=== PATIENT | male | born 1945 | race African-American/Black ===

== ENCOUNTER → 2021-01-09 | Outpatient (CLI) | payer OTHER ==
[2021-01-09 11:26] LABS: BASOPHILS % 0.1 % (0.0-2.0); HEMATOCRIT. 46.5 % (42.0-52.0); HEMOGLOBIN. 15.6 g/dL (14.0-18.0); LYMPHOCYTES % 24.5 % (20.0-50.0); MEAN CORPUSCULAR HEMOGLOBIN 28.5 pg (28.0-32.0); MEAN CORPUSCULAR VOLUME 84.9 fL (80.0-94.0); MEAN PLATELET VOLUME 8.5 fl (7.4-10.4); NEUTROPHILS % 67.4 % (40.0-76.0); PLATELET 200 x1000/uL (130-400); RED BLOOD CELL COUNT 5.48 mill/uL (4.7-6.1)
[2021-01-09 11:27] LABS: CLARITY URINE CLEAR (CLEAR); COLOR URINE YELLOW (YELLOW); KETONES URINE NEGATIVE (NEGATIVE); LEUKOCYTE ESTERASE URINE NEGATIVE (NEGATIVE); NITRITE URINE NEGATIVE (NEGATIVE); OCCULT BLOOD URINE NEGATIVE (NEGATIVE); PROTEIN URINE NEGATIVE (NEGATIVE); SPECIFIC GRAVITY URINE 1.011 (1.005-1.030); UROBILINOGEN URINE 0.2 E.U./dL (0.2-1.0)
[2021-01-09 11:34] LABS: CHLORIDE 108 mEq/L (98-107)
[2021-01-09 11:35] LABS: PARTIAL THROMBOPLASTIN TIME 28.6 sec (23.4-31.0); PROTHROMBIN TIME 10.9 sec (9.6-11.0)
== END | disposition home or self-care (01) ==
LOC: RAD 09:00
PROVIDERS: ATTEND Family Medicine
DX: Z01.818 Encounter for other preprocedural examination (principal); I49.3 Ventricular premature depolarization; S83.207A Unspecified tear of unspecified meniscus, current injury, left knee, initial encounter; X58.XXXA Exposure to other specified factors, initial encounter; Y93.89 Activity, other specified; Y92.89 Other specified places as the place of occurrence of the external cause; Y99.8 Other external cause status
CPT/HCPCS: 36415; 71045; 80053; 81003; 85025; 93005

== ENCOUNTER → 2021-02-27 | Outpatient (CLI) | payer OTHER ==
[2021-02-27 12:32] LABS: BASOPHILS % 0.4 % (0.0-2.0); EOSINOPHILS % 0.1 % (0.0-5.0); HEMATOCRIT. 48.6 % (42.0-52.0); HEMOGLOBIN. 16.2 g/dL (14.0-18.0); LYMPHOCYTES % 24.9 % (20.0-50.0); MEAN CORPUSCULAR VOLUME 84.3 fL (80.0-94.0); MEAN PLATELET VOLUME 8.7 fl (7.4-10.4); MONOCYTES % 7.6 % (2.0-8.0); PLATELET 193 x1000/uL (130-400); RED BLOOD CELL COUNT 5.77 mill/uL (4.7-6.1); RED CELL DISTRIBUTION WIDTH 15.1 % (11.6-14.6)
[2021-02-27 12:39] LABS: CHLORIDE 110 mEq/L (98-107)
[2021-02-27 12:42] LABS: CLARITY URINE CLEAR (CLEAR); COLOR URINE YELLOW (YELLOW); KETONES URINE NEGATIVE (NEGATIVE); LEUKOCYTE ESTERASE URINE NEGATIVE (NEGATIVE); NITRITE URINE NEGATIVE (NEGATIVE); OCCULT BLOOD URINE NEGATIVE (NEGATIVE); PROTEIN URINE NEGATIVE (NEGATIVE); SPECIFIC GRAVITY URINE 1.013 (1.005-1.030); UROBILINOGEN URINE 0.2 E.U./dL (0.2-1.0)
[2021-02-27 12:43] LABS: PARTIAL THROMBOPLASTIN TIME 28.5 sec (23.4-31.0); PROTHROMBIN TIME 10.9 sec (9.6-11.0)
== END | disposition home or self-care (01) ==
LOC: LAB 11:45
PROVIDERS: ATTEND Family Medicine
DX: Z01.812 Encounter for preprocedural laboratory examination (principal)
CPT/HCPCS: 36415; 80053; 81003; 85025

== ENCOUNTER 2021-03-02 06:02 | Day surgery (SDC) | payer OTHER ==
[~2021-03-02] VITALS: Ht 170.2 cm; Wt 97.5 kg
[~2021-03-02 06:02] MED LIST: LACTATED RINGERS 1,000 ML IV SCH
[2021-03-02] MEDS ORDERED: LIDOCAINE HCL 1% 10 MG/ML 10ML VIAL ONE (07:32)
[2021-03-02] MEDS ORDERED: DEXAMETHASONE 4MG/ML 1ML VIAL ONE (07:32)
[2021-03-02] MEDS ORDERED: METOCLOPRAMIDE HCL 10MG/2ML VIAL ONE (07:32)
[2021-03-02] MEDS ORDERED: ONDANSETRON HCL 4MG/2ML INJ ONE (07:32)
[2021-03-02] MEDS ORDERED: BACITRACIN 15GM TUBE TOP ONE (07:38)
[2021-03-02] MEDS ORDERED: METHYLENE BLUE 50 MG/10 ML AMP IV ONE (07:38)
[2021-03-02] MEDS ORDERED: BUPIVACAINE HCL/PF 0.25% (2.5MG/ML) 10ML ONE ×2 (07:39→09:37)
[2021-03-02] MEDS ORDERED: POLYMYXIN B SULFATE 500000 UNITS/VIAL ONE (07:40)
[2021-03-02] MEDS ORDERED: EPINEPHRINE 1:1000 1 MG/ML AMP ONE (07:42)
[2021-03-02] MEDS ORDERED: FENTANYL CITRATE/PF 50MCG/ML 2ML VIAL ONE (08:05)
[2021-03-02] MEDS ORDERED: MIDAZOLAM HCL 2 MG/2 ML VIAL ONE (08:06)
[2021-03-02] MEDS ORDERED: PROPOFOL 200MG/20ML VIAL IV ONE (08:06)
[2021-03-02] MEDS ORDERED: CEFAZOLIN SODIUM 1000MG/VIAL ONE (08:06)
[2021-03-02] MEDS ORDERED: EPHEDRINE SULFATE 50MG/ML VIAL ONE (08:25)
[2021-03-02] MEDS ORDERED: GLYCOPYRROLATE 0.2 MG/ML 2ML VIAL ONE (08:38)
[2021-03-02] MEDS ORDERED: ONDANSETRON HCL 4MG/2ML INJ IV PRN (09:00)
[2021-03-02] MEDS ORDERED: HYDROMORPHONE HCL/PF 2MG/ML CPJ IV PRN (09:00)
[2021-03-02] MEDS ORDERED: MEPERIDINE HCL/PF 25MG/ML CPJ IV PRN (09:00)
[2021-03-02] MEDS ORDERED: SODIUM CHLORIDE 0.9% 1,000 ML IV SCH (09:30)
[2021-03-02] MEDS ORDERED: MORPHINE SULFATE/PF 1MG/ML 10ML AMP ONE (09:37)
[2021-03-02] MEDS ORDERED: KETOROLAC 30MG/ML VIAL ONE (10:18)
[2021-03-02] MEDS ORDERED: HYDROCODONE/ACETAMINOPHEN 5/325MG TABLET PO PRN (14:00)
== END 2021-03-02 13:00 | disposition home or self-care (01) ==
LOC: OR 06:02
PROVIDERS: ATTEND Orthopaedic Surgery
DX: S83.232A Complex tear of medial meniscus, current injury, left knee, initial encounter (principal); M94.262 Chondromalacia, left knee; S80.02XA Contusion of left knee, initial encounter; M17.12 Unilateral primary osteoarthritis, left knee; I10 Essential (primary) hypertension; E78.00 Pure hypercholesterolemia, unspecified; Z20.822 Contact with and (suspected) exposure to COVID-19; Z79.899 Other long term (current) drug therapy; Z98.890 Other specified postprocedural states; Z96.643 Presence of artificial hip joint, bilateral; Z91.040 Latex allergy status; X58.XXXA Exposure to other specified factors, initial encounter; Y93.89 Activity, other specified; Y92.89 Other specified places as the place of occurrence of the external cause; Y99.8 Other external cause status
CPT/HCPCS: 29881; 87426; C2618; J0690; J1100; J1885; J2250; J2405; J2704; J2765; J3010; J3490; J2274; Q9968